=== PATIENT | female | born 2000 | race Caucasian/White ===

== ENCOUNTER 2018-04-22 13:29 | Observation (INO) | payer SELFPAY ==
[~2018-04-22 13:29] MED LIST: PREN-96 PO
== END 2018-04-22 15:39 | disposition home or self-care (01) | DRG 566 ==
LOC: LDRP 13:29
PROVIDERS: ADMIT Specialist; ATTEND Specialist
DX: O26.893 Other specified pregnancy related conditions, third trimester (principal); R10.30 Lower abdominal pain, unspecified; Z3A.32 32 weeks gestation of pregnancy
CPT/HCPCS: 59025; 76805; 81002; G0378

== ENCOUNTER 2018-06-18 11:35 | Observation (INO) | payer MEDICAID, OTHER ==
[~2018-06-18] VITALS: Ht 157.5 cm; Wt 88.9 kg
[2018-06-18 14:36] LABS: Mean Corpuscular Hgb Conc. 32.9 g/dL (32.0-36.0); Red Blood Cells 3.78 10^6/uL (4.0-5.20)
[2018-06-18 14:38] LABS: Hematocrit 30.8 % (36.0-46.0); Hemoglobin 10.2 g/dL (12.2-16.2); Mean Corpuscular Hemoglobin 26.8 pg (28.0-32.0); Mean Corpuscular Volume 81.5 fL (80.0-100.0); Platelet Count (auto) 290 10^3/uL (140-450); White Blood Cell 5.5 10^3/uL (4.4-10.8)
[2018-06-18 14:45] LABS: Basophils % (manual) 0 (0.0-2.0); Blast Cells 0; Metamyelocytes % 0; Myelocytes % 0; Promyelocytes % 0; Reactive Lymphocytes 0
[2018-06-18 14:58] LABS: Albumin 2.7 g/dL (3.4-5.0); BUN/Creatinine Ratio 10.5; Calcium 8.6 mg/dL (8.5-10.1); Potassium 3.7 mmol/L (3.5-5.1)
[2018-06-18 14:59] LABS: Urine Bacteria FEW /hpf (None Seen); Urine Blood Negative /uL (Negative); Urine Mucus FEW (None Seen); Urine Specific Gravity 1.021 (1.001-1.035); Urine WBC 3 /hpf (0 - 5)
[2018-06-18 15:01] LABS: Bilirubin, Total 0.5 mg/dL (0.2-1.0); Total Protein 6.9 g/dL (6.4-8.2)
[2018-06-18 15:05] LABS: Amphetamine Screen, Urine NEGATIVE (NEGATIVE); Barbiturate Scree,Urine NEGATIVE (NEGATIVE); Benzodiazephine Screen, Urine NEGATIVE (NEGATIVE); Cannabinoid Screen, Urine NEGATIVE (NEGATIVE); Cocaine Screen, Urine NEGATIVE (NEGATIVE); Opiate Scree,Urine NEGATIVE (NEGATIVE); Phencyclidine Screen, Urine NEGATIVE (NEGATIVE)
[2018-06-18 15:38] LABS: INR 0.95 (0.9-1.15); Partial Thromboplastin Time 33.7 sec (23.78-33.04); Prothrombin Time 10.2 sec (9.27-12.13)
[2018-06-18 15:45] LABS: Band Neutrophils % (manual) 1; Eosinophils % (manual) 2 (0-7); Lymphocytes % (manual) 16 (10.0-50.0); Monocytes % (manual) 11 (0-12)
[2018-06-19 05:06] LABS: RPR Non Reactive (Non Reactive)
[2018-06-19 07:05] LABS: Rubella Antibodies, IgG 5.27 index (Immune >0.99)
== END 2018-06-18 16:35 | disposition home or self-care (01) | DRG 955 ==
LOC: LDRP 11:35 → EDUNIT# 11:35 → LDRP 15:21
PROVIDERS: ADMIT Obstetrics & Gynecology; ATTEND Obstetrics & Gynecology
DX: O09.30 Supervision of pregnancy with insufficient antenatal care, unspecified trimester (principal); Z3A.39 39 weeks gestation of pregnancy
CPT/HCPCS: 36415; 59025; 76818; 80053; 80307; 81001; 81002; 83036; 85007; 85027; 85610; 85730; 86592; 86703; 86762; 86850; 86900; 86901; 87340; 87491; 87591; G0378

== ENCOUNTER 2018-06-20 14:48 | Inpatient (IN) | payer MEDICAID ==
[~2018-06-20] VITALS: Ht 160 cm; Wt 86.6 kg
[2018-06-20] MEDS ORDERED: PENICILLIN G POT 5MIL/D5 50ML 50 ML IV ONE (17:45)
[2018-06-20] MEDS: LACTATED RINGER'S 1,000 ML IV SCH (18:15)
[2018-06-20 18:23] LABS: Basophils # (auto) 0.1 uL; Basophils % (auto) 0.8 % (0.0-2.0); Eosinophils # (auto) 0.1 uL; Eosinophils % (auto) 1.8 % (0.0-7.0); Hematocrit 31.4 % (36.0-46.0); Hemoglobin 10.4 g/dL (12.2-16.2); Lymphocytes # (auto) 1.9 uL; Lymphocytes % (auto) 29.3 % (10.0-50.0); Mean Corpuscular Volume 81.7 fL (80.0-100.0); Monocytes # (auto) 1.1 uL; Monocytes % (auto) 16.1 % (0.0-12.0); Neutrophils # (auto) 3.4 uL; Nucleated Red Blood Cells % 0.1 %; Platelet Count (auto) 278 10^3/uL (140-450); Red Blood Cells 3.84 10^6/uL (4.0-5.20); Red Cell Distribution Width 14.4 % (11.8-14.3); White Blood Cell 6.5 10^3/uL (4.4-10.8)
[2018-06-20 18:24] LABS: Urine Amorphous Crystal FEW /hpf (None Seen); Urine Bacteria FEW /hpf (None Seen); Urine Blood TRACE /uL (Negative); Urine Mucus FEW (None Seen); Urine Specific Gravity 1.021 (1.001-1.035); Urine WBC 11 /hpf (0 - 5)
[2018-06-20 18:36] LABS: INR 0.95 (0.9-1.15); Partial Thromboplastin Time 36.1 sec (23.78-33.04); Prothrombin Time 10.2 sec (9.27-12.13)
[2018-06-20 18:39] LABS: Albumin 2.6 g/dL (3.4-5.0); Calcium 8.6 mg/dL (8.5-10.1); Potassium 3.9 mmol/L (3.5-5.1)
[2018-06-20 18:42] LABS: Bilirubin, Total 0.5 mg/dL (0.2-1.0); Total Protein 6.7 g/dL (6.4-8.2)
[2018-06-20 18:56] LABS: Uric Acid 3.5 mg/dL (2.6-6.0)
[2018-06-20] MEDS: PENICILLIN G POTASSIUM 2,500,000 UNITS in D5W 5% 50 ML IV SCH (22:53)
[2018-06-21] MEDS: PENICILLIN G POTASSIUM 2,500,000 UNITS in D5W 5% 50 ML IV SCH ×5 (02:59→20:18)
[2018-06-21] MEDS ORDERED: PROMETHAZINE W/CODEINE 5 ML ORAL SYRUP PO PRN (07:45)
[2018-06-21] MEDS: LACTATED RINGER'S 1,000 ML IV SCH ×2 (13:34→18:00)
[2018-06-21] MEDS ORDERED: TERBUTALINE SULFATE 1 MG/ML 1ML VIAL SC PRN (16:30)
[2018-06-21] MEDS ORDERED: LACT. RINGERS/OXYTOCIN 20UNITS 1,000 ML IV SCH ×3 (16:30→23:07)
[2018-06-21] MEDS ORDERED: NALBUPHINE HCL 10 MG/1ml INJECTION IV PRN (16:45)
[2018-06-21] MEDS ORDERED: LIDOCAINE 2%HCL (LOCAL ANESTH.) INJ 10ml MDV IJ ONE (16:45)
[2018-06-21] MEDS ORDERED: WITCH HAZEL-GLYCERIN PAD TOP PRN (16:45)
[2018-06-21] MEDS ORDERED: DERMOPLAST 60ML BOTTLE TOP PRN (16:45)
[2018-06-21] MEDS ORDERED: PHISODERM TOP SOLN 240ML BTL TOP PRN (16:45)
[2018-06-21] MEDS ORDERED: PROMETHAZINE HCL 25 MG/ML 1ML IM ONE (16:45)
[2018-06-21] MEDS ORDERED: SODIUM CHLORIDE 0.9% 1,000 ML IV SCH (16:58)
[2018-06-21] MEDS ORDERED: LIDOCAINE 2%HCL (LOCAL ANESTH.) INJ 20ML MDV IJ ONE (17:00)
[2018-06-21] MEDS ORDERED: fentaNYL CITRATE 100 MCG/2 ML VL IV ONE (17:15)
[2018-06-21] MEDS ORDERED: fentaNYL W ROPIVACAINE 150 ML EPI SCH (17:15)
[2018-06-21] MEDS ORDERED: NALOXONE HCL 0.4 MG/ML VIAL IV ONE (17:15)
[2018-06-21] MEDS ORDERED: ePHEDrine SULFATE 50 MG/ML AMP IV ONE (17:15)
[2018-06-21] MEDS ORDERED: PROMETHAZINE HCL 25 MG/ML 1ML IV PRN (17:15)
[2018-06-21] MEDS ORDERED: LIDOCAINE HCL 2 %PF INJ 10ML AMP IJ ONE (17:15)
[2018-06-21] MEDS ORDERED: LACT. RINGERS/OXYTOCIN 20UNITS 500 ML IV ONE ×2 (21:00→22:07)
[2018-06-21] MEDS ORDERED: IBUPROFEN 600 MG TAB PO PRN ×2 (21:00→22:15)
[2018-06-21] MEDS ORDERED: ACETAMINOPHEN 325 MG TAB PO PRN (22:15)
[2018-06-22 03:01] VITALS: BP 110/58
[2018-06-22 07:00] VITALS: BP 112/68
[2018-06-22 11:26] VITALS: BP 111/58
[2018-06-22] MEDS ORDERED: PROMETHAZINE W/CODEINE 5 ML ORAL SYRUP PO PRN (14:45)
[2018-06-22 15:00] VITALS: BP 106/57
[2018-06-22] MEDS ORDERED: THROAT LOZENGES(CEPASTAT) MT PRN (17:30)
[2018-06-22 18:35] VITALS: BP 125/73
[2018-06-22 23:15] VITALS: BP 115/78
[2018-06-23 03:15] VITALS: BP 122/88
[2018-06-23 05:06] LABS: RPR Non Reactive (Non Reactive)
[2018-06-23 06:36] VITALS: BP 118/79
[2018-06-23] MEDS ORDERED: TUBERCULIN PPD 5 UNIT/0.1 ML ID ONE (07:30)
== END 2018-06-23 09:50 | disposition home or self-care (01) | DRG 560 ==
LOC: OBSVTOIN 14:48 → LDRP 14:48
PROVIDERS: ADMIT Obstetrics & Gynecology; ATTEND Obstetrics & Gynecology
PROC: 10E0XZZ Delivery of Products of Conception, External Approach (ICD-10-PCS; principal; 2018-06-21)
PROC: 3E0R3BZ Introduction of Anesthetic Agent into Spinal Canal, Percutaneous Approach (ICD-10-PCS; 2018-06-21)
PROC: 00HU33Z Insertion of Infusion Device into Spinal Canal, Percutaneous Approach (ICD-10-PCS; 2018-06-21)
DX: O41.03X0 Oligohydramnios, third trimester, not applicable or unspecified (principal); Z37.0 Single live birth; Z3A.40 40 weeks gestation of pregnancy
CPT/HCPCS: 36415; 51702; 59025; 59409; 62282; 76815; 76817; 80053; 81001; 81002; 84550; 85025; 85610; 85730; 86592; 86850; 86900; 86901; 94760; 96361; 96365; 96366; 96374; A6257; G0378; J2001; J2540; J2590; J3010; J7060